=== PATIENT | male | born 1975 | race American Indian/Alaskan Native ===

== ENCOUNTER 2017-06-30 06:00 | Day surgery (SDC) | payer MEDICARE ==
[~2017-06-30 06:00] MED LIST: ANCEF/STERILE WATER 2 GM/20 ML 2 GM/20 ML SYRINGE IV NR; NACL 0.9% 1000 ML 1,000 ML IV SCH
[2017-06-30 07:12] LABS: Hematocrit 37.6 % (35.5-45.6); Hemoglobin 12.1 gm/dl (11.8-15.2); Mean Corpuscular HGB Conc 32 % (32-34); Mean Corpuscular Hemoglobin 29 pg (28-32); Mean Corpuscular Volume 89 fl (84-94); Platelet Count 186 K/mm3 (140-440); Red Blood Count 4.23 M/mm3 (3.65-5.03); Red Cell Distribution Width 16.9 % (13.2-15.2); White Blood Count 6.2 K/mm3 (4.5-11.0)
[2017-06-30 07:17] LABS: Calcium 7.9 mg/dL (8.4-10.2); Chloride 97.3 mmol/L (98-107); Potassium 4.3 mmol/L (3.6-5.0)
[2017-06-30 07:22] LABS: INR 2.08 (0.87-1.13)
[2017-06-30] MEDS ORDERED: DILAUDID IV PRN ×2 (07:30)
[2017-06-30] MEDS ORDERED: ZOFRAN IV PRN (07:30)
--- NOTE | 2017-06-30 07:30 | Anesthesia Consultation ---
Anesthesia Consult and Med Hx Date of service: 06/14/17 - Airway Anesthetic Teeth Evaluation: Good ROM Head & Neck: Adequate Mental/Hyoid Distance: Adequate Mallampati Class: Class II Intubation Access Assessment: Probably Good - Pulmonary Exam CTA: Yes - Cardiac Exam Cardiac Exam: RRR - Pre-Operative Health Status ASA Pre-Surgery Classification: ASA4 Proposed Anesthetic Plan: General - Pulmonary Hx Smoking: No SOB: Yes (has O2 for use at home but not used recently) Hx Sleep Apnea: Yes (does not use CPAP) - Cardiovascular System Hx Hypertension: Yes (EF 65%, negative stress 05/2017) Hx Cardia Arrhythmia: Yes (afib, sinus tachy, took metoprolol this morning) Hx Valvular Heart Disease: Yes (aortic valve replacement 2008) - Central Nervous System Hx Seizures: No CVA: No Hx Back Pain: Yes (scoliosis) Hx Psychiatric Problems: No - Endocrine Hx Renal Disease: Yes (HD yesterday, left fistula, s/p kidney transplant) Hx End Stage Renal Disease: Yes Hx Cirrhosis: No Hx Liver Disease: No Hx Non-Insulin Dependent Diabetes: No Hx Thyroid Disease: Yes (s/p parathyroidectomy) - Hematic Hx Anemia: No - Other Systems Hx Cancer: No Hx Obesity: No - Additional Comments Anesthesia Medical History Comments: Born with prune belly syndrome. No prior anesthesia compications. glaucoma
--- NOTE | 2017-06-30 07:30 | Anesthesia Day of Surgery ---
Anesthesia Day of Surgery - Day of Surgery Patient Examined: Yes Patient H&P Reviewed: Yes Patient is NPO: Yes Beta Blockers: Yes
[2017-06-30] MEDS ORDERED: XYLOCAINE MPF 2% ONE (07:47)
[2017-06-30] MEDS ORDERED: SUBLIMAZE ONE (07:47)
[2017-06-30] MEDS ORDERED: AMIDATE IV ONE (07:47)
[2017-06-30] MEDS ORDERED: NACL 0.9% IR ONE (07:57)
[2017-06-30] MEDS ORDERED: MARCAINE 0.5% INFILTRATI ONE (07:57)
[2017-06-30] MEDS ORDERED: HEPARIN 10,000 UNITS/10 ML IV ONE (07:57)
[2017-06-30] MEDS ORDERED: NACL 0.9% 500 ML IRRIGATION ONE (07:57)
[2017-06-30] MEDS ORDERED: MARCAINE 0.5% 30 ML INFILTRATI ONE (08:00)
[2017-06-30] MEDS ORDERED: PEPCID IV NR (08:00)
[2017-06-30] MEDS ORDERED: HEPARIN ONE (08:00)
[2017-06-30] MEDS ORDERED: NACL 0.9% 500 ML 500 ML ONE (08:00)
[2017-06-30] MEDS ORDERED: VERSED IV NR (08:00)
[2017-06-30] MEDS ORDERED: HEPARIN 10,000 UNITS/10 ML ONE (08:01)
[2017-06-30] MEDS ORDERED: RIFADIN ONE (08:28)
[2017-06-30 08:35] LABS: Anisocytosis 1+; Blastocytes % (Manual) 0 %; Diff Status Complete; Platelet Estimate Consistent w Auto; Poikilocytosis 1+
[2017-06-30] MEDS ORDERED: LOPRESSOR IV ONE (09:04)
[2017-06-30] MEDS ORDERED: DILAUDID ONE (09:41)
--- NOTE | 2017-06-30 10:12 | Short Stay Summary ---
Short Stay Documentation Date of service: 06/30/17 Narrative H&P: See H&P - History H&P: obtained from office - Allergies and Medications Current Medications: Allergies diphenhydramine [From Benadryl] Allergy (Verified 06/27/17 11:04) Unknown latex Allergy (Verified 06/27/17 11:04) Unknown IVP dye Allergy (Uncoded 06/27/17 11:04) Unknown Home Medications Medication Instructions Recorded Confirmed Last Taken Type Digoxin [Digoxin] 0.125 mg PO DAILY 06/30/17 06/30/17 06/29/17 20:00 History Epoetin Rodrigue [Epogen] 27,000 unit IJ 06/30/17 06/23/17 09:00 History Ferric Citrate (Nf) [Auryxia (Nf)] 210 mg PO TID 06/30/17 06/30/17 06/29/17 09: 00 History Lisinopril [Zestril] 40 mg PO DAILY 06/30/17 06/30/17 06/30/17 05:00 History Metoprolol [Lopressor TAB] 100 mg PO BID 06/30/17 06/30/17 06/30/17 05:00 History Sevelamer Carbonate [Renvela] 800 mg PO TID 06/30/17 06/30/17 06/29/17 20:00 History Warfarin [Coumadin] 4 mg PO 3XW 06/30/17 06/30/17 06/28/17 20:00 History Warfarin [Coumadin] 4.5 mg PO 2XW 06/30/17 06/30/17 06/29/17 20:00 History Active Medications Famotidine (Pepcid) 20 mg IV PREOP NR Stop: 06/30/17 23:59 Last Admin: 06/30/17 07:49 Dose: 20 mg Hydromorphone HCl (Dilaudid) 0.5 mg IV Q10MIN PRN PRN Reason: Pain , Severe (7-10) Stop: 06/30/17 18:00 Cefazolin Sodium (Ancef/Sterile Water 2 Gm/20 Ml) 2 gm in 20 mls @ 80 mls/hr IV PREOP NR PRN Reason: Protocol Stop: 06/30/17 23:59 Sodium Chloride (Nacl 0.9% 1000 Ml) 1,000 mls @ 42 mls/hr IV DIRECT MACHELLE Last Admin: 06/30/17 06:50 Dose: 42 mls/hr Midazolam HCl (Versed) 1 mg IV PREOP NR Stop: 06/30/17 23:59 Last Admin: 06/30/17 07:51 Dose: 1 mg Ondansetron HCl (Zofran) 4 mg IV ONCE PRN PRN Reason: Nausea And Vomiting Stop: 06/30/17 18:00 - Brief post op/procedure progress note Date of procedure: 06/30/17 Pre-op diagnosis: Complications of Dialysis Access Post-op diagnosis: same Procedure: 1. Revision of Right Arm AV Fistula with Interposition 7 mm Accuseal Graft Anesthesia: GETA Surgeon: KAROLINE HODGSON Estimated blood loss: other (300 ml) Pathology: list (right arm AV fistula pseudoaneurysms) Specimen disposition: to lab Condition: stable - Disposition Condition at discharge: Good Disposition: [id number] TO HOME OR SELFCARE Short Stay Discharge Plan Activity: other (no heavy lifting with right arm) Wound: open to air, keep clean and dry, other (okay to wash the wound with soap and water but do not soak in water) Follow up with: KAROLINE HODGSON MD [Primary Care Provider] - 14 Days Prescriptions: HYDROcodone/ACETAMINOPHEN [[place] 7.5-325 Tablet] 1 each PO Q6HR PRN #60 tablet PRN Reason: Pain
--- NOTE | 2017-06-30 10:18 | Operative Report ---
Operative Report Operative Report: Date of Procedure: 06/30/2017 Pre-operative Diagnosis: Complications of Dialysis Access Post-operative Diagnosis: Same Procedure(s): 1. Revision of Right Arm AV Fistula with Interposition 7 mm Accuseal Graft Surgeon: Tim Hill M.D. Editor School Photograph: None Anesthesia: Gen. Endotracheal Anesthesia EBL: 300 mL Counts: Correct Complications: None Condition: Stable Findings: Successful excision of right arm AV fistula pseudoaneurysms with repair with interposition graft and palpable thrill at the completion of the case. Specimen: Right arm AV fistula pseudoaneurysms and overlying skin and sent to pathology. Indication: The patient is a 42-year-old male with a history of end-stage renal disease currently on hemodialysis through a right arm AV fistula. She has 2 areas of pseudoaneurysm with thinning of the skin that is adherent to the pseudoaneurysms. He is in need of revision to prevent ulceration and bleeding. He was given the risks, benefits, and alternative procedures and consented to procedure. Description of Procedure: The patient was brought to the operating room and laid in supine position. After general endotracheal anesthesia was achieved and the right arm was prepped and draped in normal sterile fashion. A longitudinal incision was created on the medial aspect of the fistula and areas of pseudoaneurysms. Dissection was carried down to the area pseudoaneurysm using curved Mayos and then the proximal inflow as well as venous outflow dissected circumferentially and control vessels. I then made a longitudinal incision on the lateral aspect of the pseudoaneurysms and was able to dissect out the pseudoaneurysms circumferentially leaving the skin intact on the anterior surface of the pseudoaneurysms. Once the pseudoaneurysms had been dissected circumferentially there were resected both proximally and distally. I then used a Ela Wood tunnel and tunnel lateral to the incision and pulled a 4-7 Step Accuseal graft through the tunnel. I transected the 4 mm portion of the graft and then beveled the 7 mm and an created an end to end anastomosis between the arterial outflow in the graft using 2 6-0 Prolene in running fashion. I then flushed the graft and clamped it near the anastomosis and then cut the graft to length and beveled the venous end. I created an end-to-end anastomosis between the graft and the venous outflow of the fistula using 2 6-0 Prolene running fashion. Prior to completing the anastomosis I flushed the venous outflow as well as the arterial inflow and incomplete anastomosis. Upon removing the clamps the graft had a palpable thrill. Hemostasis within the bone was achieved with clot. Once hemostasis was achieved the wound was anesthetized with Marcaine and closed in 2 layers using a 3-0 Vicryl in running fashion the deep dermal layer and a 4-0 Monocryl in running fashion and the subcuticular layer and then dressed with Dermabond. The patient tolerated the procedure well. All sponge, needle, and initially counts were correct. The patient was taken to the recovery area in stable condition.
[2017-06-30] MEDS: NORMODYNE IV PRN ×2 (10:49→11:00)
[2017-06-30] MEDS ORDERED: NORCO 7.5/325 PO PRN (11:06)
[2017-06-30 13:51] VITALS: BP 150/91
--- NOTE | 2017-06-30 15:01 | Post Anesthesia Evaluation ---
- Post Anesthesia Evaluation Patient Participated: Yes Airway Patent: Yes Stable Respiratory Function: Yes Nausea/Vomiting: No Temp > 96.8F: Yes Pain Manageable: Yes Adequeate Hydration: Yes Anesthesia Complications: No Block Receding Appropriately: Not Applicable Patient on Ventilator: No
== END 2017-06-30 13:05 | disposition home or self-care (01) ==
LOC: OR 06:00
PROVIDERS: ATTEND Surgery Vascular Surgery
DX: T82.898A Other specified complication of vascular prosthetic devices, implants and grafts, initial encounter (principal); I48.91 Unspecified atrial fibrillation; I50.9 Heart failure, unspecified; I13.2 Hypertensive heart and chronic kidney disease with heart failure and with stage 5 chronic kidney disease, or end stage renal disease; N18.6 End stage renal disease; Y83.8 Other surgical procedures as the cause of abnormal reaction of the patient, or of later complication, without mention of misadventure at the time of the procedure; Y92.89 Other specified places as the place of occurrence of the external cause; Z98.890 Other specified postprocedural states; Z90.5 Acquired absence of kidney; Z91.040 Latex allergy status; Z88.8 Allergy status to other drugs, medicaments and biological substances
CPT/HCPCS: 36415; 36830; 80048; 85007; 85025; 85610; 88304; C1768; J0690; J1170; J1644; J2250; J3010; J3490; J7030; J7040

== ENCOUNTER 2019-01-28 19:08 | Emergency (ER) | payer MEDICARE ==
[2019-01-28 21:21] LABS: INR 2.58 (0.87-1.13)
[2019-01-28 21:22] LABS: Partial Thromboplastin Time 50.1 Sec. (24.2-36.6)
[2019-01-28 21:26] LABS: Alanine Aminotransferase 13 units/L (7-56); Albumin 4.2 g/dL (3.9-5); BUN/Creatinine Ratio 5; Basophils # (Auto) 0.1 K/mm3 (0.0-0.1); Blood Urea Nitrogen 78 mg/dL (9-20); Calcium 8.7 mg/dL (8.4-10.2); Eosinophils # (Auto) 0.1 K/mm3 (0.0-0.4); Eosinophils % (Auto) 2.5 % (0.0-4.3); Hematocrit 31.5 % (35.5-45.6); Hemoglobin 10.1 gm/dl (11.8-15.2); Hemolysis Index 17; Lymphocytes # (Auto) 0.7 K/mm3 (1.2-5.4); Lymphocytes % (Auto) 13.8 % (13.4-35.0); Mean Corpuscular HGB Conc 32 % (32-34); Mean Corpuscular Volume 97 fl (84-94); Monocytes # (Auto) 0.7 K/mm3 (0.0-0.8); Monocytes % (Auto) 14.1 % (0.0-7.3); Platelet Count 197 K/mm3 (140-440); Red Blood Count 3.26 M/mm3 (3.65-5.03); Red Cell Distribution Width 18.6 % (13.2-15.2)
[2019-01-28 21:27] LABS: Basophils % (Auto) 3.2 % (0.0-1.8)
[2019-01-28 21:37] LABS: Bilirubin,Direct < 0.2 mg/dL (0-0.2)
--- NOTE | 2019-01-28 22:05 | Emergency Department Report ---
ED General Adult HPI - General Chief complaint: Extremity Problem,Nontraumatic Stated complaint: BLEED FROM DIALYSIS FISTULA Time Seen by Provider: 01/28/19 20:37 Source: patient, EMS Mode of arrival: Stretcher Limitations: Physical Limitation - History of Present Illness Initial comments: Patient is 43 years old male with history of end-stage renal disease on hemodialysis at home. Patient brought to the emergency room via EMS after patient started to have bleeding from his right fistula. Bleeding stopped by pressure dressing by EMS. Upon arrival to the ER I examined the right fistula site and dressing was removed and there was no active bleeding. Patient denied any other symptoms. - Related Data Home Medications Medication Instructions Recorded Confirmed Last Taken Digoxin 0.125 mg PO DAILY 06/30/17 06/30/17 06/29/17 20:00 Epoetin Rodrigue [Epogen] 27,000 unit IJ 06/30/17 06/23/17 09:00 Ferric Citrate (Nf) [Auryxia] 210 mg PO TID 06/30/17 06/30/17 06/29/17 09:00 Lisinopril [Zestril] 40 mg PO DAILY 06/30/17 06/30/17 06/30/17 05:00 Metoprolol [Lopressor TAB] 100 mg PO BID 06/30/17 06/30/17 06/30/17 05:00 Sevelamer Carbonate [Renvela] 800 mg PO TID 06/30/17 06/30/17 06/29/17 20:00 Warfarin [Coumadin] 4 mg PO 3XW 06/30/17 06/30/17 06/28/17 20:00 Warfarin [Coumadin] 4.5 mg PO 2XW 06/30/17 06/30/17 06/29/17 20:00 Previous Rx's Medication Instructions Recorded Last Taken Type HYDROcodone/ACETAMINOPHEN [[place] 1 each PO Q6HR PRN #60 tablet 06/30/17 Unknown Rx 7.5-325 Tablet] Allergies Allergy/AdvReac Type Severity Reaction Status Date / Time diphenhydramine Allergy Unknown Verified 06/27/17 11:04 [From Benadryl] latex Allergy Unknown Verified 06/27/17 11:04 IVP dye Allergy Unknown Uncoded 06/27/17 11:04 ED Review of Systems ROS: Stated complaint: BLEED FROM DIALYSIS FISTULA Other details as noted in HPI Comment: All other systems reviewed and negative Constitutional: denies: chills, fever Respiratory: denies: cough, shortness of breath, SOB with exertion Cardiovascular: denies: chest pain, palpitations Gastrointestinal: denies: abdominal pain, nausea, vomiting, diarrhea, constipation, hematemesis, melena, hematochezia Genitourinary: denies: urgency, dysuria Musculoskeletal: denies: back pain Neurological: denies: headache, weakness, numbness, paresthesias, confusion ED Past Medical Hx - Past Medical History Previous Medical History?: Yes Hx Hypertension: Yes (EF 65%, negative stress 05/2017) Hx Congestive Heart Failure: Yes Hx Liver Disease: No Hx Renal Disease: Yes (HD yesterday, left fistula, s/p kidney transplant) Hx Seizures: No - Surgical History Past Surgical History?: Yes Hx Open Heart Surgery: Yes (aortic valve replacement) - Social History Smoking Status: Never Smoker - Medications Home Medications: Home Medications Medication Instructions Recorded Confirmed Last Taken Type Digoxin 0.125 mg PO DAILY 06/30/17 06/30/17 06/29/17 20:00 History Epoetin Rodrigue [Epogen] 27,000 unit IJ 06/30/17 06/23/17 09:00 History Ferric Citrate (Nf) [Auryxia] 210 mg PO TID 06/30/17 06/30/17 06/29/17 09:00 History HYDROcodone/ACETAMINOPHEN [[place] 1 each PO Q6HR PRN #60 tablet 06/30/17 Unknown Rx 7.5-325 Tablet] Lisinopril [Zestril] 40 mg PO DAILY 06/30/17 06/30/17 06/30/17 05:00 History Metoprolol [Lopressor TAB] 100 mg PO BID 06/30/17 06/30/17 06/30/17 05:00 History Sevelamer Carbonate [Renvela] 800 mg PO TID 06/30/17 06/30/17 06/29/17 20:00 History Warfarin [Coumadin] 4 mg PO 3XW 06/30/17 06/30/17 06/28/17 20:00 History Warfarin [Coumadin] 4.5 mg PO 2XW 06/30/17 06/30/17 06/29/17 20:00 History ED Physical Exam - General Limitations: Physical Limitation General appearance: alert, in no apparent distress - Head Head exam: Present: atraumatic, normocephalic, normal inspection - Eye Eye exam: Present: normal appearance - ENT ENT exam: Present: normal exam, normal orophraynx, mucous membranes moist - Neck Neck exam: Present: normal inspection, full ROM. Absent: tenderness, meningismus, lymphadenopathy, thyromegaly - Respiratory Respiratory exam: Present: normal lung sounds bilaterally. Absent: respiratory distress, wheezes, rales, rhonchi, stridor, chest wall tenderness, accessory muscle use, decreased breath sounds, prolonged expiratory - Cardiovascular Cardiovascular Exam: Present: regular rate, normal rhythm, normal heart sounds - GI/Abdominal GI/Abdominal exam: Present: soft, normal bowel sounds. Absent: distended, tenderness, guarding, rebound, rigid, organomegaly, mass, bruit, pulsatile mass, hernia - Extremities Exam Extremities exam: Present: normal inspection, full ROM, normal capillary refill, other (right arm fistula, no active bleeding.) - Back Exam Back exam: Present: normal inspection, full ROM - Neurological Exam Neurological exam: Present: alert, oriented X3, CN II-XII intact, normal gait, reflexes normal - Skin Skin exam: Present: warm, intact, normal color ED Course Vital Signs 01/28/19 20:28 Temperature 98.5 F Pulse Rate 90 Respiratory 18 Rate Blood Pressure 169/86 O2 Sat by Pulse 95 Oximetry - Procedure Description Procedures done: 1 suture applied to the right arm fistula to control bleeding. Under aseptic condition using 4-0 Ethilon. No complication. ED Medical Decision Making - Lab Data Result diagrams: 01/28/19 20:40 01/28/19 20:40 - Medical Decision Making Patient is 43 years old male with history of end-stage renal disease on hemodialysis at home. Patient brought to the emergency room via EMS after patient started to have bleeding from his right fistula. Bleeding stopped by pressure dressing by EMS. Upon arrival to the ER I examined the right fistula site and dressing was removed and there was no active bleeding. Patient denied any other symptoms. Patient fistula start to rebleed again. I applied a suture and that controlled the bleeding. Patient observed in the ER no active bleeding after suture placement. Patient be discharged home in stable clinical condition to follow-up with his vascular surgeon in the morning. Also advised him and his mother to return to the ER if symptoms return. Critical Care Time: Yes Critical care time in (mins) excluding proc time.: 30 Critical care attestation.: If time is entered above; I have spent that time in minutes in the direct care of this critically ill patient, excluding procedure time. ED Disposition Clinical Impression: Hemorrhage of arteriovenous fistula, End-stage renal disease on hemodialysis Disposition: TO HOME OR SELFCARE Is pt being admited?: No Condition: Stable Instructions: End-Stage Kidney Disease (ED) Referrals: HILARIO NAVAS MD [Primary Care Provider] - 3-5 Days
[2019-01-28 23:44] VITALS: BP 166/77
== END 2019-01-28 23:30 | disposition home or self-care (01) ==
LOC: ED 19:08
DX: T82.838A Hemorrhage due to vascular prosthetic devices, implants and grafts, initial encounter (principal); I13.2 Hypertensive heart and chronic kidney disease with heart failure and with stage 5 chronic kidney disease, or end stage renal disease; I50.9 Heart failure, unspecified; N18.6 End stage renal disease; Z99.2 Dependence on renal dialysis; Z91.040 Latex allergy status; Z88.5 Allergy status to narcotic agent
CPT/HCPCS: 36415; 80048; 80076; 85025; 85610; 85730; 99283

== ENCOUNTER 2019-03-21 11:23 | Outpatient (CLI) | payer MEDICARE ==
--- NOTE | 2019-03-21 12:32 | XRay Report ---
CHEST 2 VIEWS INDICATION: Cough for one week. COMPARISON: None FINDINGS: Support devices: None. Heart: Heart size appears borderline to mildly increased. There appears to be a prosthetic aortic ceasar ve. There are diffuse calcifications and mild ectasia in the thoracic aorta. Correlate with surgical history. Lungs/pleura: No acute air space or interstitial disease. No pneumothorax. No evidence for pneumonia , pleural effusion or pneumothorax. Additional findings: Severe scoliosis IMPRESSION: Borderline to mild cardiomegaly. Previous aortic valve replacement with diffuse aortic calcifications and ectasia. Lungs clear. Signer Name: Shivam Wang Jr, MD Signed: 03/21/2019 12:27 PM Workstation Name: [id number]
== END 2019-03-21 11:24 | disposition home or self-care (01) ==
LOC: XRAY 11:23
DX: I70.0 Atherosclerosis of aorta (principal); I77.819 Aortic ectasia, unspecified site; I13.2 Hypertensive heart and chronic kidney disease with heart failure and with stage 5 chronic kidney disease, or end stage renal disease; I50.9 Heart failure, unspecified; N18.6 End stage renal disease
CPT/HCPCS: 71046

== ENCOUNTER 2020-02-13 00:46 | Emergency (ER) | payer MEDICARE ==
--- NOTE | 2020-02-13 00:52 | Event Note ---
Date: 02/13/20 Verbal report received from emergency medical services. EMS documentation not available at time of chart dictation 44-year-old gentleman presenting with bleeding from dialysis fistula after scratching it. As per EMS, he is on Coumadin. EMS reports bleeding stopped with application of direct pressure bandage. We will check basic laboratory studies and reassess. We will continue pressure bandage.
[2020-02-13 01:31] LABS: Hematocrit 36.6 % (35.5-45.6); Hemoglobin 11.6 gm/dl (11.8-15.2); Mean Corpuscular HGB Conc 32 % (32-34); Mean Corpuscular Volume 92 fl (84-94); Platelet Count 194 K/mm3 (140-440); Red Blood Count 3.99 M/mm3 (3.65-5.03)
[2020-02-13 01:43] LABS: INR 2.24 (0.87-1.13)
[2020-02-13 01:47] LABS: Calcium 9.4 mg/dL (8.4-10.2)
[2020-02-13] MEDS ORDERED: SILVER NITRATE APPLICATOR 1 EA TP ONE (01:51)
[2020-02-13] MEDS ORDERED: LIDOCAINE 2%/EPINEPHRINE 1:200,000 VIAL (20 ML) INFILTRATI ONE (01:51)
[2020-02-13 01:53] LABS: Partial Thromboplastin Time 91.1 Sec. (24.2-36.6)
[2020-02-13] MEDS ORDERED: SODIUM CHLORIDE 0.9% IV ONE (02:15)
[2020-02-13] MEDS ORDERED: DESMOPRESSIN ACETATE IV ONE (02:15)
--- NOTE | 2020-02-13 02:50 | Emergency Department Report ---
ED General Adult HPI - General Chief complaint: Wound/Laceration Stated complaint: BLEEDING AT FISTULA PUI?: No Time Seen by Provider: 02/13/20 00:51 Source: patient, EMS (Verbal report received from emergency medical services. EMS documentation not available at time of chart dictation ), RN notes reviewed Mode of arrival: Stretcher Limitations: No Limitations - History of Present Illness Initial comments: Patient is a pleasant 44-year-old gentleman, with a history of end-stage renal disease, on home hemodialysis, Monday through Monday, on Coumadin for mechanical aortic valve, and hypertension. The patient is brought to the hospital by emergency medical services after he scratched his right upper extremity fistula, and started to have bleeding. Prior to this, he was not having any complaints or any issues. He does not produce urine, he denies hematemesis and bright red blood per rectum. The bleeding was constant, and resolved/improved with direct gentle pressure, and a pressure bandage. The patient denies additional injuries or complaints. -: Sudden Location: right, upper extremity Consistency: constant Improves with: other (Improves with direct pressure and a pressure bandage) Worsens with: other (Worsens without pressure) Associated Symptoms: denies other symptoms - Related Data Home Medications Medication Instructions Recorded Confirmed Last Taken Digoxin 0.125 mg PO DAILY 06/30/17 06/30/17 06/29/17 20:00 Epoetin Rodrigue [Epogen] 27,000 unit IJ 06/30/17 06/23/17 09:00 Ferric Citrate (Nf) [Auryxia] 210 mg PO TID 06/30/17 06/30/17 06/29/17 09:00 Lisinopril [Zestril] 40 mg PO DAILY 06/30/17 06/30/17 06/30/17 05:00 Metoprolol [Lopressor TAB] 100 mg PO BID 06/30/17 06/30/17 06/30/17 05:00 Sevelamer Carbonate [Renvela] 800 mg PO TID 06/30/17 06/30/17 06/29/17 20:00 Warfarin [Coumadin] 4 mg PO 3XW 06/30/17 06/30/17 06/28/17 20:00 Warfarin [Coumadin] 4.5 mg PO 2XW 06/30/17 06/30/17 06/29/17 20:00 Previous Rx's Medication Instructions Recorded Last Taken Type HYDROcodone/ACETAMINOPHEN [[place] 1 each PO Q6HR PRN #60 tablet 06/30/17 Unknown Rx 7.5-325 Tablet] Allergies Allergy/AdvReac Type Severity Reaction Status Date / Time diphenhydramine Allergy Unknown Verified 06/27/17 11:04 [From Benadryl] latex Allergy Unknown Verified 06/27/17 11:04 IVP dye Allergy Unknown Uncoded 06/27/17 11:04 ED Review of Systems ROS: Stated complaint: BLEEDING AT FISTULA Other details as noted in HPI Comment: Unobtainable due to pts medical conditions Hematological/Lymphatic: easy bleeding ED Past Medical Hx - Past Medical History Previous Medical History?: Yes Hx Hypertension: Yes (EF 65%, negative stress 05/2017) Hx Congestive Heart Failure: Yes Hx Liver Disease: No Hx Renal Disease: Yes (HD yesterday, left fistula, s/p kidney transplant) Hx Seizures: No - Surgical History Past Surgical History?: Yes Hx Open Heart Surgery: Yes (aortic valve replacement) - Social History Smoking Status: Never Smoker Substance Use Type: None - Medications Home Medications: Home Medications Medication Instructions Recorded Confirmed Last Taken Type Digoxin 0.125 mg PO DAILY 06/30/17 06/30/17 06/29/17 20:00 History Epoetin Rodrigue [Epogen] 27,000 unit IJ 06/30/17 06/23/17 09:00 History Ferric Citrate (Nf) [Auryxia] 210 mg PO TID 06/30/17 06/30/17 06/29/17 09:00 History HYDROcodone/ACETAMINOPHEN [[place] 1 each PO Q6HR PRN #60 tablet 06/30/17 Unknown Rx 7.5-325 Tablet] Lisinopril [Zestril] 40 mg PO DAILY 06/30/17 06/30/17 06/30/17 05:00 History Metoprolol [Lopressor TAB] 100 mg PO BID 06/30/17 06/30/17 06/30/17 05:00 History Sevelamer Carbonate [Renvela] 800 mg PO TID 06/30/17 06/30/17 06/29/17 20:00 History Warfarin [Coumadin] 4 mg PO 3XW 06/30/17 06/30/17 06/28/17 20:00 History Warfarin [Coumadin] 4.5 mg PO 2XW 06/30/17 06/30/17 06/29/17 20:00 History ED Physical Exam - General Limitations: No Limitations General appearance: alert, in no apparent distress - Head Head exam: Present: atraumatic, normocephalic - Eye Eye exam: Present: normal appearance, EOMI. Absent: nystagmus - ENT ENT exam: Present: normal exam, normal orophraynx, mucous membranes moist, normal external ear exam - Neck Neck exam: Present: normal inspection, full ROM. Absent: tenderness, meningismus - Respiratory Respiratory exam: Present: normal lung sounds bilaterally. Absent: respiratory distress - Cardiovascular Cardiovascular Exam: Present: regular rate, normal rhythm, systolic murmur. Absent: bradycardia, tachycardia, irregular rhythm, diastolic murmur, rubs, gallop - GI/Abdominal GI/Abdominal exam: Present: soft. Absent: distended, tenderness, guarding, rebound, rigid, pulsatile mass - Rectal Rectal exam: Present: deferred - Extremities Exam Extremities exam: Present: full ROM, other (2+ pulses noted in the bilateral upper and lower extremities. There is no palpable cord. negative Homans sign. Muscular compartments are soft. The pelvis is stable.). Absent: normal inspection (There is a right upper extremity fistula noted, without redness, pus or streaking. Initially a pressure bandage is in place. Pressure bandage is gently removed by myself. Initially, there is no active bleeding. Then, minimal oozing starts. This stops/resolves with application of recurrent pressure bandage), calf tenderness - Back Exam Back exam: Absent: normal inspection (Scoliosis is noted), tenderness, CVA tenderness (R), CVA tenderness (L), paraspinal tenderness, vertebral tenderness - Neurological Exam Neurological exam: Present: alert, other (No facial droop. Tongue midline. Extraocular movements intact bilaterally. Facial sensation intact to light touch in V1, V2, V3 distribution bilaterally. 5 and a 5 strength in 4 extremities. Sensation intact to light touch in 4 extremities.). Absent: motor sensory deficit - Psychiatric Psychiatric exam: Present: anxious - Skin Skin exam: Present: warm, dry, intact, normal color. Absent: rash ED Course Vital Signs 02/13/20 02/13/20 02/13/20 00:57 01:02 01:30 Temperature 98.6 F Pulse Rate 85 83 81 Respiratory 17 22 Rate Blood Pressure 160/96 Blood Pressure 160/96 [left arm] O2 Sat by Pulse 100 97 Oximetry 02/13/20 02/13/20 02/13/20 02:00 02:30 03:00 Temperature Pulse Rate 79 81 96 H Respiratory 22 26 H 14 Rate Blood Pressure 160/96 167/97 158/84 Blood Pressure [left arm] O2 Sat by Pulse 92 100 Oximetry ED Medical Decision Making - Lab Data Result diagrams: 02/13/20 01:23 02/13/20 01:23 Vital Signs 02/13/20 02/13/20 02/13/20 00:57 01:02 01:30 Temperature 98.6 F Pulse Rate 85 83 81 Respiratory 17 22 Rate Blood Pressure 160/96 Blood Pressure 160/96 [left arm] O2 Sat by Pulse 100 97 Oximetry 02/13/20 02/13/20 02/13/20 02:00 02:30 03:00 Temperature Pulse Rate 79 81 96 H Respiratory 22 26 H 14 Rate Blood Pressure 160/96 167/97 158/84 Blood Pressure [left arm] O2 Sat by Pulse 92 100 Oximetry Lab Results 02/13/20 02/13/20 02/13/20 Range/Units 01:23 01:23 01:23 WBC 5.2 (4.5-11.0) K/mm3 RBC 3.99 (3.65-5.03) M/mm3 Hgb 11.6 L (11.8-15.2) gm/dl Hct 36.6 (35.5-45.6) % MCV 92 (84-94) fl MCH 29 (28-32) pg MCHC 32 (32-34) % RDW 18.0 H (13.2-15.2) % Plt Count 194 (140-440) K/mm3 PT 24.7 H (12.2-14.9) Sec. INR 2.24 H (0.87-1.13) APTT 91.1 H* (24.2-36.6) Sec. Sodium 142 (137-145) mmol/L Potassium 4.5 (3.6-5.0) mmol/L Chloride 96.1 L (98-107) mmol/L Carbon Dioxide 28 (22-30) mmol/L Anion Gap 22 mmol/L BUN 60 H (9-20) mg/dL Creatinine 9.5 H (0.8-1.5) mg/dL Estimated GFR 7 ml/min BUN/Creatinine Ratio 6 % Glucose 111 H (75-100) mg/dL Calcium 9.4 (8.4-10.2) mg/dL Magnesium 2.70 H (1.7-2.3) mg/dL Total Creatine Kinase 84 (55-170) units/L - Medical Decision Making Differential diagnosis, including but not limited to: End-stage renal disease on hemodialysis, platelet dysfunction, anticoagulated, bleeding fistula Assessment and plan: 44-year-old gentleman with bleeding fistula, accidental, now improved/resolved with application of pressure bandage, and direct digital pressure. He is given desmopressin. Laboratory studies are reviewed and appreciated. His Coumadin dose varies, and he is frequently in communication with his primary physician for this. It is currently morning, and he is going to perform home hemodialysis later on this afternoon. He is comfortable to go home with pressure bandage, applied direct digital pressure, continue home medications, and he will self administer dialysis. Return precautions are reviewed Critical care attestation.: If time is entered above; I have spent that time in minutes in the direct care of this critically ill patient, excluding procedure time. ED Disposition Clinical Impression: Anticoagulated, End-stage renal disease on hemodialysis Complication of AV dialysis fistula Qualifiers: Encounter type: initial encounter Qualified Code(s): T82.9XXA - Unspecified complication of cardiac and vascular prosthetic device, implant and graft, initial encounter Disposition: TO HOME OR SELFCARE Is pt being admited?: No Does the pt Need Aspirin: No Condition: Stable Additional Instructions: Please continue current outpatient medications. Please continue home hemodialysis as scheduled. Please keep the pressure bandage in place, and continue to apply direct gentle pressure with fingertips as often as as needed. Please cannulate later on this afternoon when scheduled for home hemodialysis. If bleeding reoccurs, and does not resolve with gentle digital pressure, applied with fingertips, for at least 20 minutes, apply a pressure dressing, and return to the emergency room right away. Please return to the emergency room right away with new pain, worsening pain, migration of pain, projectile vomiting, change in mental status, confusion, inability to tolerate liquid feeds, new, worsened or different symptoms not present on the initial emergency room evaluation For the patient's convenience, local nephrology specialists have been listed, but the patient is welcome to follow-up with his outpatient hammerer helper if he so desires Referrals: LAZARA COOK MD [Staff Physician] - 3-5 Days
[2020-02-13 03:12] VITALS: BP 158/84
== END 2020-02-13 03:41 | disposition home or self-care (01) ==
LOC: ED 00:46
DX: T82.9XXA Unspecified complication of cardiac and vascular prosthetic device, implant and graft, initial encounter (principal); I13.2 Hypertensive heart and chronic kidney disease with heart failure and with stage 5 chronic kidney disease, or end stage renal disease; N18.6 End stage renal disease; I50.9 Heart failure, unspecified; Z79.899 Other long term (current) drug therapy; Z79.01 Long term (current) use of anticoagulants; Z98.890 Other specified postprocedural states; Z88.8 Allergy status to other drugs, medicaments and biological substances; Z91.041 Radiographic dye allergy status; Z91.013 Allergy to seafood; Z99.2 Dependence on renal dialysis
CPT/HCPCS: 36415; 80048; 82550; 83735; 85027; 85610; 85730; 96365; 99284; J2597